=== PATIENT | female | born 1940 | race Caucasian/White ===

== ENCOUNTER 2016-10-25 08:45 | Inpatient (IN) | payer MEDICARE, OTHER ==
[2016-10-17 11:46] LABS: BASOPHILS 0.5 %; BASOPHILS ABSOLUTE 0.04 10/3/uL (0.0-0.16); EOSINOPHILS 1.4 %; EOSINOPHILS ABSOLUTE 0.12 10/3/uL (0.0-0.53); HEMOGLOBIN 11.9 g/dL (12.0-16.0); IMMATURE GRANULOCYTES 0.2 %; IMMATURE GRANULOCYTES ABSOLUTE 0.02 10/3/uL (0.0-0.11); LYMPHOCYTES 24.7 %; LYMPHOCYTES ABSOLUTE 2.09 10/3/uL (0.67-4.30); MEAN CORPUS HGB CONC 31.7 g/dL (32.0-36.0); MEAN CORPUSCULAR HEMOGLOB 28.4 pg (26.0-34.0); MEAN CORPUSCULAR VOLUME 89.5 fL (80-100); MEAN PLATELET VOLUME 9.1 fL (9.2-13.0); MONOCYTES 9.1 %; MONOCYTES ABSOLUTE 0.77 10/3/uL (0.21-1.20); NEUTROPHILS 64.1 %; NEUTROPHILS ABSOLUTE 5.42 10/3/uL (2.02-8.40); RED CELL COUNT 4.19 10/6/uL (4.0-5.6); WHITE BLOOD CELLS 8.5 10/3/uL (4.5-10.5)
[2016-10-17 11:47] LABS: HEMATOCRIT 37.5 % (36.0-48.0); MANUAL DIFF NO %; PLATELET COUNT 487 10/3/uL (150-400)
[2016-10-17 11:55] LABS: INTERNATIONAL NORMAL RATI 1.4 UNITS (-); PROTIME (NOT ORD) 17.1 SEC (12.0-14.5)
[2016-10-17 12:04] LABS: % IRON SAT 16 % (20-50); A/G RATIO 0.9 (0.7-1.9); ALBUMIN 3.5 G/DL (3.5-5.0); ALKALINE PHOSPHATASE 116 U/L (45-117); BUN (BLOOD UREA NITROGEN) 11 MG/DL (6-23); CALCIUM, SERUM 9.5 MG/DL (8.5-10.4); CHLORIDE, SERUM 95 MMOL/L (96-112); CO2 (CARBON DIOXIDE) 33 MMOL/L (24-34); CREATININE 0.61 MG/DL (0.55-1.02); GFR AFRICAN AMERICAN 104 ML/MIN (>=60); GFR NON AFRICAN AMERICAN 89 ML/MIN (>=60); GLOBULIN 4.1 G/DL (2.5-4.1); GLUCOSE, SERUM 92 MG/DL (60-99); IRON BINDING CAPACITY 384 MCG/DL (225-410); IRON, SERUM 60 MCG/DL (35-150); POTASSIUM, SERUM 3.7 MMOL/L (3.5-5.3); SGOT(AST) 31 U/L (5-40); SGPT(ALT) 28 U/L (5-65); SODIUM, SERUM 137 MMOL/L (135-148); TOTAL BILIRUBIN 0.8 MG/DL (0-1.2); TOTAL PROTEIN 7.6 G/DL (6.0-8.5)
[2016-10-17 12:45] LABS: ASCORBIC ACID (UR NOT ORDER) NEG (NEG); BILIRUBIN, URINE NEGATIVE (NEG); KETONE, URINE NEGATIVE (NEG); LEUKOCYTE ESTERASE(NOT OR TRACE (NEG); WBC (NOT ORDERED) (RFLEX) < 1 (0-5)
--- NOTE | ~2016-10-25 | CN ---
Consultation Report [facility] [address] [facility] [place]. [address] NAME: YESY TORRES : 44 STATUS : ADM IN [facility]#: [id number] AGE: 76 ADM/REG DATE : 10/25/16 MR#: [id number] REPORT SERV DATE: 10/28/16 DICTATED BY: EDMUND CERVANTES DATE: 10/28/16 REPORT STATUS : Draft TRANSCRIBED BY: MODL DATE: 10/28/16 ELECTROPHYSIOLOGY CONSULTATION DATE OF CONSULTATION: INDICATION: Third-degree AV block. HISTORY OF PRESENT ILLNESS: Ms. Yesy Torres is a 76-year-old female who was admitted on 10/25/2016 with mitral valve stenosis as well as mitral insufficiency, cardiomyopathy, question ischemic versus valvular, cardiomyopathy and CAD. She underwent surgery on 10/25/2016, at which time, she had mitral valve replacement with a pericardial prosthesis and bypass grafting with a single-vessel bypass graft to the saphenous vein graft to diagonal. She had an ejection fraction of 40% under preprocedure coronary arteriogram. She remained in third-degree AV block since that time. Cardiac Electrophysiology is consulted for consideration of pacemaker. The patient is currently eating pasta with vegetables. The patient's underlying rhythm is third-degree AV block with a ventricular escape in the range of 25 to 30 beats per minute. She does have symptoms of dizziness with this. Her ventricular capture threshold on her epicardial lead is approximately 4.5-5 milliamps. Otherwise, the patient is without complaints of chest pain or shortness of breath at present time. PAST MEDICAL HISTORY: Coronary artery disease, mitral valve disease with mixed MR and MS, CAD, obesity. FAMILY HISTORY: Notable for coronary artery disease in older relatives, lung cancer, aortic enlargement. SOCIAL HISTORY: Quit smoking twenty years ago. Former financial coach. No alcohol. REVIEW OF SYSTEMS: As per the HPI. Otherwise, all review of systems negative. Other past medical history are hypertension, hypercholesteremia, osteoarthritis, previous history of GI bleeding, previous history of smoking. PHYSICAL EXAMINATION: VITAL SIGNS: Blood pressure of 116/57, pulse is 60, respiratory rate is 18, temperature 99.8, T-max 100.5. GENERAL: Appears stated age, no distress. EYES: Sclerae anicteric, no arcus senilis. MOUTH: Oral mucosa moist, lips acyanotic. NECK: Jugular venous pressure normal, no carotid bruits. Consultation Report [facility] [address] [place]. [address] NAME: YESY TORRES : 44 STATUS : ADM IN [facility]#: [id number] AGE: 76 ADM/REG DATE : 10/25/16 MR#: [id number] REPORT SERV DATE: 10/28/16 DICTATED BY: EDMUND CERVANTES DATE: 10/28/16 REPORT STATUS : Draft TRANSCRIBED BY: MODL DATE: 10/28/16 LUNGS: Coarse breath sounds bilaterally. CARDIAC: Regular rate and rhythm, no murmurs, gallops or rubs. ABDOMEN: Obese, soft, nontender. EXTREMITIES: Mild edema. SKIN: Warm and dry. NEURO/PSYCH: Alert and oriented, nonfocal, mood appropriate. DATA: Sodium 139, potassium 4.3, creatinine 0.51, magnesium 2.1. Hemoglobin 9, white count 11.6, platelets 146. Telemetry demonstrates third-degree AV block. PRESENT MEDICATIONS: Vitamin C, aspirin, Lipitor, coenzyme Q10, Colace, Pepcid, Lasix, Synthroid, topical nitroglycerin, Protonix, potassium, Senokot, and zinc sulfate. ALLERGIES: NONE KNOWN. IMPRESSION: 1. Third-degree AV block. 2. Cardiomyopathy, question ischemic versus valvular. 3. Status post CABG and maze. 4. Obesity. 5. History of hypertension. 6. Hyperlipidemia. RECOMMENDATIONS: Discussed situation with the patient. We will plan for a cardiac resynchronization. Pacemaker to be implanted tomorrow. I have addressed with her the rationale, logistics, and risks. Risks include, but not limited to bleeding, infection, vascular complications, myocardial infarction, stroke, failure to place lead, lead dislodgement, pneumothorax. All questions were answered and the patient wished to proceed. GKB/SAVANNAH Edmund Cervantes M.D. / [id number] CC: Tony Isbell
--- NOTE | ~2016-10-25 | DS ---
Discharge Summary [facility] [address] [place]. [address] NAME: DIMITRIOS JUSTIN : 44 STATUS : DIS IN PAT#: [id number] AGE: 76 ADM/REG DATE : 10/25/16 MR#: [id number] REPORT SERV DATE: 11/13/16 DICTATED BY: REMEDIOS CORTES DATE: 11/12/16 REPORT STATUS : Draft TRANSCRIBED BY: SAVANNAH DATE: 11/12/16 Data Collection from hospitalization DISCHARGE DIAGNOSES: 1. Mitral valve stenosis with insufficiency (rheumatic) disease, status post mitral valve replacement. 2. Coronary artery disease with angina, status post coronary artery bypass grafting x1. 3. Paroxysmal atrial fibrillation, status post extensive left atrial Maze. 4. Chronic diastolic heart failure. 5. Hypertension. 6. Gastroesophageal reflux disease. 7. Morbid obesity - body mass index greater than 40. 8. Hypercholesterolemia. 9. Osteoarthritis. 10.Psoriatic arthritis. 11.History of parathyroid disorder. 12.Anxiety. 13.Former smoker. CONSULTATIONS: Edmund Cervantes M.D. PROCEDURES PERFORMED: Mitral valve replacement with 29 mm pericardial valve (Magna Ease) using chordal sparing technique (posterior leaflet), coronary artery bypass grafting x1 with reverse saphenous vein graft placed to the second diagonal, extensive left atrial Maze procedure on cardiopulmonary bypass using radiofrequency ablation and cryoablation, endoscopic vein harvest of the saphenous vein from the right thigh, transesophageal echocardiography on 10/25/2016. PATHOLOGY: Left atrial appendage - noninflamed cardiac muscle. Mitral valve anterior leaflet replacement - myxoid degeneration. MEDICATIONS: Vitamin C 1000 mg twice a day, aspirin 81 mg daily, Lipitor 40 mg at bedtime, brimonidine one drop in both eyes twice a day, CoQ10 200 mg daily, Colace 200 mg twice a day, Lasix 40 mg daily, Levaquin 750 mg as instructed, Synthroid 88 mcg before breakfast, Theragran tablets one tablet daily, Lopressor 25 mg twice a day as instructed, Protonix 40 mg before breakfast, potassium chloride SR 40 mEq daily, Senokot two tablets twice a day, Coumadin as instructed, Tylenol 650 mg every four hours as needed, Mylanta 30 mL as needed, Dulcolax 10 mg per rectum as needed, [place] 5/325 one tablet every four hours as needed, and milk of magnesia 30 mL at bedtime as needed. CONDITION AT DISCHARGE: Stable. DISPOSITION: The patient was discharged to [facility] with diet and activities as instructed. She would follow up with Missael Farias on 11/28/2016 and would follow up with Dr. Perkins on 11/07/2016. HOSPITAL COURSE: This is a 76-year-old female who describes having a "minor heart attack" in 1994. At that time, she had been seen by Dr. Oscar Caban and told that she had a Discharge Summary [address] [address] NAME: DIMITRIOS JUSTIN : 44 STATUS : DIS IN PAT#: [id number] AGE: 76 ADM/REG DATE : 10/25/16 MR#: [id number] REPORT SERV DATE: 11/13/16 DICTATED BY: REMEDIOS CORTES DATE: 11/12/16 REPORT STATUS : Draft TRANSCRIBED BY: MODYesica DATE: 11/12/16 problem with her mitral bowel. Apparently, she was followed over a period of years by Dr. Caban, which had included several coronary arteriograms and at least one nuclear medicine study. She had been discharged from his practice when her symptoms were stable. She reports that over the past several years she has had a progressive decline in her exercise tolerance. 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 She said that over the past three months prior to this admission her shortness of breath had progressed to the point where she gets quite short of breath just getting up from her chair and walking to the bathroom. She does live alone and said that she has been sleeping in a recliner. She has also had some left-sided chest discomfort. She has not had any diaphoresis, nausea, vomiting, syncope, or near syncope. She did remember having possibly an abnormal heart rate. She also complained that she has had several months of progressive swelling over the lower extremities, and over the years, has had an intermittent cough that was dry and usually nonproductive, this was attributed apparently to bronchitis. She had seen her primary care physician and had an echocardiogram, which was abnormal. Transesophageal echocardiogram here demonstrated severe mitral regurgitation, mild mitral stenosis with diminished left ventricular ejection fraction and mitral valve area of 2.2 cm2 with mean gradient of 5 mmHg. Her coronary arteriogram had shown significant flow-limiting disease in the diagonal branch. She had [id number] disease in the other coronary arteries. Treatment options were discussed and it was elected to proceed with surgical intervention. She was admitted to the hospital at this time for further evaluation and treatment. Upon admission, she was taken to the operating room where she underwent the above-mentioned procedure. She tolerated this well, and there were no complications. On postop day #1, she was seen by Dr. Edmund Cervantes regarding third-degree AV block. The patient had an ejection fraction of 40% under preprocedure coronary arteriogram. She had remained in third degree AV block since that time. Cardiac electrophysiology had been consulted for consideration of a pacemaker. The patient's underlying rhythm with third-degree AV block with ventricular escape in the range of 25 to 30 beats per minute. She did have some symptoms of dizziness with this. Ventricular capture threshold on the epicardial lead was approximately 4.5-5 milliamps. Otherwise, she had no complaints of chest pain or shortness of breath at the present time. Situation was discussed with the patient. We would plan for cardiac resynchronization to be performed and pacemaker implantation. The patient agreed to proceed. On 10/27/2016, she was up sitting in a chair. She complained that her shoulders were sore and she had some shortness of breath. White count was 13.2. Metoprolol and amiodarone were held. The next day, she was up sitting in a chair. She had a few crackles in the lung bases. Her incisions looked okay. She had no edema. She was in an AV junctional rhythm and was requiring pacing for rate. Nitroglycerin was stopped. She was still in the ICU. She had no atrial fibrillation at this time. I preferred that we continue temporary pacing and gave her about one week for rhythm recovery. On 10/29/2016, she had mildly decreased breath sounds, left greater than right. She had a few crackles. She had trace lower extremity edema. We were going to try her off the pacer. The following day, Coumadin was going to begin that evening. She had no chest pain or shortness of breath. She remained off beta-evette and amiodarone. She was transferred to the floor. On 10/31/2016, pacing wires were removed. Her abdomen was soft and nontender. She had 2+ lower extremity edema. Her incisions looked okay. Zaroxolyn was added to her Discharge Summary [address] [place]. [address] NAME: DIMITRIOS JUSTIN : 44 STATUS : DIS IN PAT#: [id number] AGE: 76 ADM/REG DATE : 10/25/16 MR#: [id number] REPORT SERV DATE: 11/13/16 DICTATED BY: REMEDIOS CORTES DATE: 11/12/16 REPORT STATUS : Draft TRANSCRIBED BY: SAVANNAH DATE: 11/12/16 regimen. Potassium supplementation was given. Over the next couple of days, she felt less short of breath. She had more energy. Discharge planning was performed. She did have some burning discomfort with urination. Urinalysis was performed. White count was 10.2. Levaquin was started. Low-dose Lopressor was continued for tachycardia. She was evaluated by Physical Therapy. Her INR level was 2.1. On 11/02/2016, she continued to progress. She had no new complaints. Discharge instructions were given. Due to her improved and stable condition, she was discharged to [facility] with the above-stated instructions. Information collected by: Brianne Whelan I submit the above information as my discharge summary. DENIA/SAVANNAH Remedios Cortes M.D. / [id number] CC: Tony Isbell LAURIE Gregory Keith Bruce, M.D. [facility]
--- NOTE | ~2016-10-25 | OP ---
Record Of Operation [facility] [address] [place]. [address] NAME: DIMITRIOS JUSTIN : 42 STATUS : ADM IN PAT#: [id number] AGE: 76 ADM/REG DATE : 10/25/16 MR#: [id number] REPORT SERV DATE: 10/25/16 DICTATED BY: REMEDIOS CORTES DATE: 10/25/16 REPORT STATUS : Draft TRANSCRIBED BY: MODL DATE: 10/25/16 DATE OF PROCEDURE: 10/25/2016 PREOPERATIVE DIAGNOSES: 1. Mitral valve stenosis with insufficiency (rheumatic). 2. Coronary artery disease with angina. 3. Paroxysmal atrial fibrillation. 4. Chronic diastolic heart failure. 5. Hypertension. 6. Gastroesophageal reflux disease. 7. Morbid obesity (body mass index greater than 40). POSTOPERATIVE DIAGNOSES: 1. Mitral valve stenosis with insufficiency (rheumatic). 2. Coronary artery disease with angina. 3. Paroxysmal atrial fibrillation. 4. Chronic diastolic heart failure. 5. Hypertension. 6. Gastroesophageal reflux disease. 7. Morbid obesity (body mass index greater than 40). PROCEDURE PERFORMED: 1. Mitral valve replacement with a 29 mm pericardial valve (Magna Ease) using chordal sparing technique (posterior leaflet). 2. Coronary artery bypass grafting x1, reverse saphenous vein graft placed to the second diagonal. 3. Extensive left atrial Maze procedure on cardiopulmonary bypass using radiofrequency ablation and cryoablation. 4. Endoscopic vein harvest of the saphenous vein from right the thigh. 5. Transesophageal echocardiography. SURGEON: Remedios Cortes M.D. ASSISTANTS: Page Quinones and Zach Sy. ANESTHESIA: General with Dr. Nicole. WOOD MACHINIST APPRENTICE: Tiera Pepper M.D. INDICATIONS: This is a 76-year-old morbidly obese female who presented to [facility] with diastolic congestive heart failure. She was also seen to be in atrial fibrillation at that time and was medically convert. She was transferred to [facility] from [facility] and underwent echocardiogram that demonstrated significant mitral valve insufficiency with a partially calcified mitral annulus and mitral valve stenosis, it is felt to be at least moderate. She underwent a cardiac catheterization that demonstrated significant disease in the branch of the first diagonal vessel. We were asked to see the patient for Record Of Operation [facility] [address] [place]. [address] NAME: DIMITRIOS JUSTIN : 42 STATUS : ADM IN PAT#: [id number] AGE: 76 ADM/REG DATE : 10/25/16 MR#: [id number] REPORT SERV DATE: 10/25/16 DICTATED BY: REMEDIOS CORTES DATE: 10/25/16 REPORT STATUS : Draft TRANSCRIBED BY: MODYesica DATE: 10/25/16 possible coronary artery bypass grafting and mitral valve replacement. We saw the patient in the hospital and was felt to be at elevated risk because of her comorbidities, and she was admitted for possible transvenous mitral valve replacement; however, she did not have enough annular calcification to be able to see the transcatheter mitral valve, it was believed. Therefore, we were asked to re-engage and consider mitral valve replacement and bypass surgery in this nice lady along with possible Maze procedure. We discussed this operation with the patient, and after discussion of the operations, its indication and risks, they wished to proceed. The patient's preoperative risk of mortality of greater than 5% and morbidity mortality of 26% was shared with the family. FINDINGS AT OPERATION: 1. Cross-clamp time of 85 minutes and total pump time of 118 minutes. 2. The diagonal vessel was a branch of the first diagonal, I called this vessel D2. It was 1.5 mm moderately diseased. A 3-4 mm RSVG was anastomosed to it with fair runoff. This was a small target. 3. The vein quality was okay and the grafts did have good Doppler signal at the end of the case. 4. Mitral valve was thickened with fusion of the anterolateral and posteromedial commissures consistent with history of rheumatic disease. The chords coming to the anterior leaflet and posterior leaflet were foreshortened and very thickened. I felt this was a type III Radha defect. 5. We replaced the mitral valve using a 29 mm Magna Ease pericardial valve. We used a 14 cor knots to secure the valve into place. The posterior leaflet and its chordal attachments were preserved. 6. We did ligate and amputate the left atrial appendage using a 60 mm purple staple load. 7. Left atrial Maze procedure on bypass was performed. We utilized the AtriCure radiofrequency ablation and cryoablation systems. Full left atrial Maze procedure along with a coronary sinus lesion was performed. We also performed entry and exit block testing. 8. MILLY at the end of the operation demonstrated good ventricular function and mitral valve prosthesis was well seated without perivalvular leak. There was no significant tricuspid valve insufficiency and no significant aortic insufficiency. At the beginning of the operation, MILLY demonstrated no left atrial clot. PATHOLOGIC SPECIMENS: Include left atrial appendage. Also portions of the anterior leaflet of the mitral valve. DESCRIPTION OF PROCEDURE: The patient was brought to the operating suite where general anesthesia was induced and airway secured with an endotracheal tube. Lines secured by Anesthesia. White catheter was placed. The patient's chest, abdomen, groin, and legs were prepped with Hibiclens and ChloraPrep and draped with Ioban sterile sheets. MILLY probe was placed by Dr. Nicole and examination carried out in my attendance as discussed above. The saphenous vein was harvested from the right thigh using endoscopic technique. Briefly, the vein was cut directly down upon through a 2 cm incision placed at the medial aspect of the right knee. Then, using VasoView trocars, the vessel was dissected from the surrounding subcutaneous tissue and fat. The side branches were identified, ligated, and divided with Record Of Operation [facility] [address] [facility] [place]. [address] NAME: DIMITRIOS JUSTIN : 42 STATUS : ADM IN PAT#: [id number] AGE: 76 ADM/REG DATE : 10/25/16 MR#: [id number] REPORT SERV DATE: 10/25/16 DICTATED BY: REMEDIOS CORTES DATE: 10/25/16 REPORT STATUS : Draft TRANSCRIBED BY: MODYesica DATE: 10/25/16 cautery. Once adequate length of vein had been dissected, a counter incision was made up in the groin and the vein was ligated, divided, and brought through the knee incision. The vein quality was good. The leg was made hemostatic and closed in layers with absorbable suture and skin closed in subcuticular fashion. Then, a midline sternal incision was made with the sternal saw. The Vinh retractor was placed and heparin administered by Anesthesia. Lines passed from the field for cardiopulmonary bypass and cleared of air. The pericardium was opened from the innominate vein, the diaphragm was T'd and tacked to side of the chest wall. Cannulation pursestring sutures were placed and cannulation was carried out in a routine manner. No retrograde cardioplegia cannula was placed. When all was in readiness, the patient was placed on cardiopulmonary bypass. We marked out the single distal targets as described in the findings. Next, we turned our attention towards the Maze procedure. Circumferential dissection around the confluence of the pulmonary veins was carried out. Then, we divided the ligament of Cory using cautery. Signals in the pulmonary veins were confirmed along with pacing. Next, pulmonary vein isolation performed using the AtriCure bipolar clamp. The lesion at the base of the left atrial was performed and a connecting lesion between the left PVI and base left atrial appendage was performed with the AtriCure pen. Then, a coronary sinus lesion using the cryoprobe was performed in the usual manner. The aorta was then cross clamped and the initial and only dose of crystalloid solution was given in an antegrade fashion. Then, interatrial groove of [place] was dissected and left atriotomy made. We continued with the Maze procedure performing again at the superior and inferior dome lesions and mitral valve lesion using the RFA clamp and cryoprobe. It should be noted that entry block confirmation was performed prior to cardioplegia administration. With the Maze procedure completed, a heart support was placed. We then turned our attention towards the bypass graft. Arteriotomy was made in the diagonal vessel. The vein graft was trimmed and anastomosed to it with 7-0 Prolene. This vein graft was measured to the left side of the ascending aorta where it was divided and anastomosed to 4.5 mm punch aortotomy with 6-0 Prolene. Following the bypass, the heart support was removed. We then turned our attention towards the mitral valve. The Vinh retractor apparatus was assembled and positioned allowing good visualization of the mitral valve. The mitral valve was examined and as stated above, the mitral valve appeared to be rheumatic with thickened leaflets and short and thickened chordae. There was also fusion of the anterior and posterior commissures. The anterior leaflet was excised along with the chordal attachments. The most of the posterior leaflet and its chordal attachments were preserved. We then irrigated the left ventricle and left atrium copiously with iced saline to remove any particulate matter. The valve was sized and a 29 mm pericardial valve was selected. Interrupted pledgeted sutures of 2-0 Tycron placed circumferentially about the mitral valve annulus with the pledgets on the ventricular side. The sutures were then passed through the sewing cuff of the prosthetic valve. This lowered into position and each sutures Record Of Operation [facility] [address] [place]. [address] NAME: DIMITRIOS JUSTIN : 42 STATUS : ADM IN PAT#: [id number] AGE: 76 ADM/REG DATE : 10/25/16 MR#: [id number] REPORT SERV DATE: 10/25/16 DICTATED BY: REMEDIOS CORTES DATE: 10/25/16 REPORT STATUS : Draft TRANSCRIBED BY: SAVANNAH DATE: 10/25/16 individually secured and divided using a Cor-Knot device. A total of 14 cor knots were utilized. Iced saline injection through the orifice of the mitral valve after implantation demonstrated a well-functioning valve without significant leak. Warming was begun. An LV vent was then placed through right superior pulmonary vein and directed across the mitral valve into the left ventricle. The left atriotomy was then closed in a two-layer fashion with running pledgeted suture of 4-0 Prolene. The patient placed in Trendelenburg and the ascending aorta and left ventricle were de- aired. The aortic cross-clamp was then removed. The distal and proximal anastomoses and suture lines were all inspected and made hemostatic. Doppler demonstrated good flow through the grafts. The heart was allowed to rest on cardiopulmonary bypass for several minutes. Then, ventilations were begun. The heart was also paced in an AV sequential fashion. When the heart demonstrated good contractility, it was allowed to fill and eject. De-airing was monitored with MILLY. When deairing was completed, the LV vent was removed and these pursestring sutures tied. The ascending aortic vent was likewise removed and these pursestring sutures tied and reinforced. The patient was then weaned from cardiopulmonary bypass with minimal inotropic support. The venous cannulas were removed and these pursestring sutures were tied. MILLY examination demonstrated good function in the left ventricle and right ventricle. The mitral valve prosthesis was well seated without perivalvular leak. Protamine was administered by Anesthesia, and following a period of hemodynamic stability, aortic cannula was removed and these pursestring sutures tied and reinforced. The patient continued do well and chest irrigated copiously with saline. Meticulous hemostasis was obtained. Hemasorb was placed along the cut edge of the sternum. Once hemostasis was assured, the pericardium was draped over the anterior surface of the heart and tacked into position. Doppler demonstrated good flow through the grafts following protamine administration. Then, chest tubes were placed and sternum reapproximated with eight sternal wires. The clavipectoral fascia and linea alba were closed with #1 Stratafix as was subcutaneous tissue. The skin was closed in subcuticular fashion. The patient tolerated the procedure well. There were no complications. Sponge and needle counts were correct. DISPOSITION: The patient left intubated, sedated, and transported to the intensive care unit in stable condition. NUBIA/SAVANNAH Remedios Cortes M.D. Record Of [address] [address] NAME: DIMITRIOS JUSTIN : 42 STATUS : ADM IN [facility]#: [id number] AGE: 76 ADM/REG DATE : 10/25/16 MR#: [id number] REPORT SERV DATE: 10/25/16 DICTATED BY: REMEDIOS CORTES DATE: 10/25/16 REPORT STATUS : Draft TRANSCRIBED BY: SAVANNAH DATE: 10/25/16 / [id number] CC: Tony Isbell M.D. Ondrej J Lisy, M.D.
[~2016-10-25 08:45] MED LIST: ADVIL PO; ALBUTEROL SULFATE INH; ALPHAGAN P 0.1% OPH; ALPHAGAN P0.1 % OPH; ASAB PO; BENGAY TOP; CENTRUM PO; COQ-10200 MG PO; COQ-1075 MG PO; COREG3 PO; CRANBERRY PO; DULCOLAX STOOL100 MG PO; ELIQUIS 5 MG TAB5 MG PO; ISORDIL10 PO; KLOR-CON M2020 MEQ PO; L40 PO; LEVOTHYROXIN88 MCG PO; LIPITOR40 PO; NEXIUM20 M1 PO; NORCO1 TA1 PO; PRESERVISION A1 EAC1 PO; PRESERVISION A1 EACH PO; TRICOR48 PO; VITE PO; XARELTO20 MG PO
[2016-10-25 19:50] LABS: BE (BASE EXCESS) -3.3 MEQ/L (0 +/- 2.5); CARBOXYHEMOGLOBIN 0.3 % (0-3); HEMOBLOGIN CONTENT 11.2 G/DL (12-16); INSTRUMENT SERIAL # 11843; METHEMOGLOBIN 0.5 % (0-3); MODE SIMV; O2 CONTENT 16.1 VOL% (18-24); OPERATOR ID 32193; PCO2 (CO2 TENSION) 40 MMHG (35-45); PO2 (O2 TENSION) 275 MMHG (79-93); SAMPLE Arterial; TIDAL VOLUME 500 ML; pH 7.36 (7.37-7.43)
[2016-10-25 20:04] LABS: HEMOGLOBIN 10.5 g/dL (12.0-16.0)
[2016-10-25 20:08] LABS: HEMATOCRIT 32.7 % (36.0-48.0); PLATELET COUNT 120 10/3/uL (150-400)
[2016-10-25 20:09] LABS: INTERNATIONAL NORMAL RATI 1.9 UNITS (-)
[2016-10-25 20:16] LABS: BUN (BLOOD UREA NITROGEN) 10 MG/DL (6-23); CALCIUM, SERUM 8.3 MG/DL (8.5-10.4); CHLORIDE, SERUM 108 MMOL/L (96-112); CO2 (CARBON DIOXIDE) 23 MMOL/L (24-34); CREATININE 0.59 MG/DL (0.55-1.02); GFR AFRICAN AMERICAN 105 ML/MIN (>=60); GFR NON AFRICAN AMERICAN 90 ML/MIN (>=60); GLUCOSE, SERUM 104 MG/DL (60-99); POTASSIUM, SERUM 3.6 MMOL/L (3.5-5.3); SODIUM, SERUM 141 MMOL/L (135-148)
[2016-10-25 20:26] LABS: PROTIME (NOT ORD) 21.3 SEC (12.0-14.5)
[2016-10-26 00:34] LABS: BE (BASE EXCESS) -2.1 MEQ/L (0 +/- 2.5); CARBOXYHEMOGLOBIN 0.2 % (0-3); DEVICE VM; HCO3 (ACTUAL BICARBONATE) 24.3 MEQ/L (23-27); HEMOBLOGIN CONTENT 11.3 G/DL (12-16); INSTRUMENT SERIAL # 11843; METHEMOGLOBIN 0.5 % (0-3); O2 CONTENT 15.4 VOL% (18-24); OPERATOR ID 32193; PCO2 (CO2 TENSION) 49 MMHG (35-45); PO2 (O2 TENSION) 102 MMHG (79-93); SAMPLE Arterial; pH 7.32 (7.37-7.43)
[2016-10-26 02:32] LABS: CHLORIDE, SERUM 113 MMOL/L (96-112); CO2 (CARBON DIOXIDE) 26 MMOL/L (24-34); CREATININE 0.44 MG/DL (0.55-1.02); GFR AFRICAN AMERICAN 115 ML/MIN (>=60); GFR NON AFRICAN AMERICAN 99 ML/MIN (>=60); GLUCOSE, SERUM 99 MG/DL (60-99); POTASSIUM, SERUM 4.1 MMOL/L (3.5-5.3); SODIUM, SERUM 147 MMOL/L (135-148)
[2016-10-26 02:36] LABS: BUN (BLOOD UREA NITROGEN) 15 MG/DL (6-23)
[2016-10-26 02:42] LABS: INTERNATIONAL NORMAL RATI 1.5 UNITS (-)
[2016-10-26 02:43] LABS: BASOPHILS 0 %; EOSINOPHILS 0 %; HEMOGLOBIN 9.9 g/dL (12.0-16.0); IMMATURE GRANULOCYTES 0.2 %; IMMATURE GRANULOCYTES ABSOLUTE 0.02 10/3/uL (0.0-0.11); LYMPHOCYTES 7.2 %; LYMPHOCYTES ABSOLUTE 0.66 10/3/uL (0.67-4.30); MEAN CORPUS HGB CONC 31.9 g/dL (32.0-36.0); MEAN CORPUSCULAR HEMOGLOB 28.9 pg (26.0-34.0); MEAN CORPUSCULAR VOLUME 90.4 fL (80-100); MEAN PLATELET VOLUME 9.9 fL (9.2-13.0); MONOCYTES 6.6 %; MONOCYTES ABSOLUTE 0.61 10/3/uL (0.21-1.20); NEUTROPHILS ABSOLUTE 7.93 10/3/uL (2.02-8.40); PLATELET COUNT 120 10/3/uL (150-400); RBC DISTRIBUTION WIDTH 15.6 % (12.0-16.0); RED CELL COUNT 3.43 10/6/uL (4.0-5.6); WHITE BLOOD CELLS 9.2 10/3/uL (4.5-10.5)
[2016-10-26 02:44] LABS: MANUAL DIFF NO %
[2016-10-26 02:46] LABS: PROTIME (NOT ORD) 17.5 SEC (12.0-14.5)
[2016-10-26 18:55] LABS: HEMATOCRIT 29.5 % (36.0-48.0); HEMOGLOBIN 9.5 g/dL (12.0-16.0)
[2016-10-26 19:03] LABS: POTASSIUM, SERUM 4.1 MMOL/L (3.5-5.3)
[2016-10-27 04:22] LABS: HEMATOCRIT 30.2 % (36.0-48.0); HEMOGLOBIN 9.4 g/dL (12.0-16.0); MEAN CORPUS HGB CONC 31.1 g/dL (32.0-36.0); MEAN CORPUSCULAR HEMOGLOB 28.9 pg (26.0-34.0); MEAN CORPUSCULAR VOLUME 92.9 fL (80-100); MEAN PLATELET VOLUME 10.5 fL (9.2-13.0); PLATELET COUNT 120 10/3/uL (150-400); RBC DISTRIBUTION WIDTH 16.1 % (12.0-16.0); RED CELL COUNT 3.25 10/6/uL (4.0-5.6)
[2016-10-27 04:35] LABS: MANUAL DIFF YES %; WHITE BLOOD CELLS 13.2 10/3/uL (4.5-10.5)
[2016-10-27 04:38] LABS: CHLORIDE, SERUM 109 MMOL/L (96-112); CO2 (CARBON DIOXIDE) 25 MMOL/L (24-34); CREATININE 0.43 MG/DL (0.55-1.02); GFR AFRICAN AMERICAN 116 ML/MIN (>=60); GFR NON AFRICAN AMERICAN 100 ML/MIN (>=60); POTASSIUM, SERUM 4.5 MMOL/L (3.5-5.3); SODIUM, SERUM 143 MMOL/L (135-148)
[2016-10-27 04:39] LABS: BUN (BLOOD UREA NITROGEN) 25 MG/DL (6-23); CALCIUM, SERUM 9.4 MG/DL (8.5-10.4); GLUCOSE, SERUM 125 MG/DL (60-99)
[2016-10-27 05:28] LABS: ACANTHOCYTES OCC (0-2/OIF); BAND NEUTROPHILS 9 %; EOSINOPHILS 1 %; EOSINOPHILS ABSOLUTE (CALC) 0.13 10/3/uL (0.0-0.53); HELMET CELLS OCC (0-2/OIF); LYMPHOCYTES 15 %; LYMPHOCYTES ABSOLUTE (CALC) 1.98 10/3/uL (0.67-4.30); MONOCYTES 13 %; MONOCYTES ABSOLUTE (CALC) 1.72 10/3/uL (0.21-1.20); NEUTROPHILS ABSOLUTE (CALC) 9.37 10/3/uL (2.02-8.40); PLATELET ESTIMATE SLT DEC (ADEQUATE); SEGMENTED NEUTROPHIL (0) 62 %; TOTAL NUCLEATED CELLS 100
[2016-10-28 04:08] LABS: BASOPHILS 0.2 %; BASOPHILS ABSOLUTE 0.02 10/3/uL (0.0-0.16); EOSINOPHILS 0.3 %; EOSINOPHILS ABSOLUTE 0.03 10/3/uL (0.0-0.53); HEMATOCRIT 28.2 % (36.0-48.0); IMMATURE GRANULOCYTES 0.4 %; IMMATURE GRANULOCYTES ABSOLUTE 0.05 10/3/uL (0.0-0.11); LYMPHOCYTES 18.3 %; LYMPHOCYTES ABSOLUTE 2.12 10/3/uL (0.67-4.30); MEAN CORPUS HGB CONC 31.9 g/dL (32.0-36.0); MEAN CORPUSCULAR HEMOGLOB 29.3 pg (26.0-34.0); MEAN CORPUSCULAR VOLUME 91.9 fL (80-100); MEAN PLATELET VOLUME 10.6 fL (9.2-13.0); MONOCYTES ABSOLUTE 1.86 10/3/uL (0.21-1.20); NEUTROPHILS 64.8 %; NEUTROPHILS ABSOLUTE 7.52 10/3/uL (2.02-8.40); PLATELET COUNT 146 10/3/uL (150-400); RED CELL COUNT 3.07 10/6/uL (4.0-5.6); WHITE BLOOD CELLS 11.6 10/3/uL (4.5-10.5)
[2016-10-28 04:15] LABS: MANUAL DIFF NO %
[2016-10-28 04:18] LABS: BUN (BLOOD UREA NITROGEN) 22 MG/DL (6-23); CALCIUM, SERUM 9.7 MG/DL (8.5-10.4); CHLORIDE, SERUM 102 MMOL/L (96-112); CREATININE 0.51 MG/DL (0.55-1.02); GFR AFRICAN AMERICAN 110 ML/MIN (>=60); GFR NON AFRICAN AMERICAN 95 ML/MIN (>=60); GLUCOSE, SERUM 134 MG/DL (60-99); POTASSIUM, SERUM 4.3 MMOL/L (3.5-5.3); SODIUM, SERUM 139 MMOL/L (135-148)
[2016-10-28 04:20] LABS: CO2 (CARBON DIOXIDE) 31 MMOL/L (24-34)
[2016-10-29 04:12] LABS: CALCIUM, SERUM 9.2 MG/DL (8.5-10.4); CHLORIDE, SERUM 95 MMOL/L (96-112); CO2 (CARBON DIOXIDE) 35 MMOL/L (24-34); CREATININE 0.37 MG/DL (0.55-1.02); GFR AFRICAN AMERICAN 122 ML/MIN (>=60); GFR NON AFRICAN AMERICAN 105 ML/MIN (>=60); GLUCOSE, SERUM 127 MG/DL (60-99); HEMATOCRIT 26.1 % (36.0-48.0); HEMOGLOBIN 8.1 g/dL (12.0-16.0); MEAN CORPUSCULAR HEMOGLOB 28.1 pg (26.0-34.0); MEAN CORPUSCULAR VOLUME 90.6 fL (80-100); MEAN PLATELET VOLUME 10.3 fL (9.2-13.0); PLATELET COUNT 180 10/3/uL (150-400); POTASSIUM, SERUM 3.6 MMOL/L (3.5-5.3); RBC DISTRIBUTION WIDTH 15.6 % (12.0-16.0); RED CELL COUNT 2.88 10/6/uL (4.0-5.6); SODIUM, SERUM 139 MMOL/L (135-148); WHITE BLOOD CELLS 10.3 10/3/uL (4.5-10.5)
[2016-10-29 04:14] LABS: MANUAL DIFF YES %
[2016-10-29 04:18] LABS: BUN (BLOOD UREA NITROGEN) 13 MG/DL (6-23)
[2016-10-29 04:33] LABS: BAND NEUTROPHILS 6 %; HYPOCHROMIA 1+ (3-10/OIF) (0-2/OIF); LYMPHOCYTES 15 %; LYMPHOCYTES ABSOLUTE (CALC) 1.55 10/3/uL (0.67-4.30); MONOCYTES 12 %; MONOCYTES ABSOLUTE (CALC) 1.24 10/3/uL (0.21-1.20); NEUTROPHILS ABSOLUTE (CALC) 7.52 10/3/uL (2.02-8.40); PLATELET ESTIMATE ADQ (ADEQUATE); SEGMENTED NEUTROPHIL (0) 67 %; TOTAL NUCLEATED CELLS 100
[2016-10-29 04:34] LABS: MACROCYTES 1+ (5-10/OIF) (0-5/OIF); POLYCHROMASIA 1+ (2-5/OIF) (0-1/OIF)
[2016-10-29 14:30] LABS: POTASSIUM, SERUM 3.8 MMOL/L (3.5-5.3)
[2016-10-30 06:25] LABS: BASOPHILS 0.1 %; BASOPHILS ABSOLUTE 0.01 10/3/uL (0.0-0.16); EOSINOPHILS 3.5 %; EOSINOPHILS ABSOLUTE 0.32 10/3/uL (0.0-0.53); HEMATOCRIT 28.4 % (36.0-48.0); HEMOGLOBIN 9.1 g/dL (12.0-16.0); IMMATURE GRANULOCYTES 0.3 %; IMMATURE GRANULOCYTES ABSOLUTE 0.03 10/3/uL (0.0-0.11); LYMPHOCYTES 17.4 %; MEAN CORPUSCULAR HEMOGLOB 29.3 pg (26.0-34.0); MEAN CORPUSCULAR VOLUME 91.3 fL (80-100); MEAN PLATELET VOLUME 9.1 fL (9.2-13.0); MONOCYTES 12.6 %; MONOCYTES ABSOLUTE 1.16 10/3/uL (0.21-1.20); NEUTROPHILS 66.1 %; NEUTROPHILS ABSOLUTE 6.09 10/3/uL (2.02-8.40); PLATELET COUNT 220 10/3/uL (150-400); RBC DISTRIBUTION WIDTH 15.5 % (12.0-16.0); RED CELL COUNT 3.11 10/6/uL (4.0-5.6); WHITE BLOOD CELLS 9.2 10/3/uL (4.5-10.5)
[2016-10-30 06:26] LABS: MANUAL DIFF NO %
[2016-10-30 06:39] LABS: BUN (BLOOD UREA NITROGEN) 10 MG/DL (6-23); CALCIUM, SERUM 9.3 MG/DL (8.5-10.4); CHLORIDE, SERUM 95 MMOL/L (96-112); CO2 (CARBON DIOXIDE) 36 MMOL/L (24-34); CREATININE 0.29 MG/DL (0.55-1.02); GFR AFRICAN AMERICAN 132 ML/MIN (>=60); GFR NON AFRICAN AMERICAN 114 ML/MIN (>=60); GLUCOSE, SERUM 109 MG/DL (60-99); POTASSIUM, SERUM 4.3 MMOL/L (3.5-5.3); SODIUM, SERUM 136 MMOL/L (135-148)
[2016-10-30 14:39] LABS: INTERNATIONAL NORMAL RATI 1.1 UNITS (-); PROTIME (NOT ORD) 13.7 SEC (12.0-14.5)
[2016-10-31 05:55] LABS: BASOPHILS 0.4 %; BASOPHILS ABSOLUTE 0.04 10/3/uL (0.0-0.16); EOSINOPHILS 3.1 %; EOSINOPHILS ABSOLUTE 0.28 10/3/uL (0.0-0.53); HEMATOCRIT 27.6 % (36.0-48.0); HEMOGLOBIN 8.5 g/dL (12.0-16.0); IMMATURE GRANULOCYTES 0.6 %; IMMATURE GRANULOCYTES ABSOLUTE 0.05 10/3/uL (0.0-0.11); LYMPHOCYTES 14.9 %; LYMPHOCYTES ABSOLUTE 1.33 10/3/uL (0.67-4.30); MEAN CORPUS HGB CONC 30.8 g/dL (32.0-36.0); MEAN CORPUSCULAR HEMOGLOB 28.1 pg (26.0-34.0); MEAN CORPUSCULAR VOLUME 91.4 fL (80-100); MONOCYTES 14.6 %; NEUTROPHILS 66.4 %; NEUTROPHILS ABSOLUTE 5.92 10/3/uL (2.02-8.40); PLATELET COUNT 274 10/3/uL (150-400); RBC DISTRIBUTION WIDTH 15.7 % (12.0-16.0); RED CELL COUNT 3.02 10/6/uL (4.0-5.6); WHITE BLOOD CELLS 8.9 10/3/uL (4.5-10.5)
[2016-10-31 06:00] LABS: INTERNATIONAL NORMAL RATI 1.1 UNITS (-); PROTIME (NOT ORD) 14.3 SEC (12.0-14.5)
[2016-10-31 06:04] LABS: MANUAL DIFF NO %
[2016-10-31 06:06] LABS: BUN (BLOOD UREA NITROGEN) 8 MG/DL (6-23); CALCIUM, SERUM 9.3 MG/DL (8.5-10.4); CHLORIDE, SERUM 92 MMOL/L (96-112); CO2 (CARBON DIOXIDE) 37 MMOL/L (24-34); GFR AFRICAN AMERICAN 131 ML/MIN (>=60); GFR NON AFRICAN AMERICAN 113 ML/MIN (>=60); GLUCOSE, SERUM 124 MG/DL (60-99); POTASSIUM, SERUM 3.5 MMOL/L (3.5-5.3); SODIUM, SERUM 136 MMOL/L (135-148)
[2016-11-01 06:48] LABS: BASOPHILS 0.4 %; BASOPHILS ABSOLUTE 0.04 10/3/uL (0.0-0.16); EOSINOPHILS 3.1 %; EOSINOPHILS ABSOLUTE 0.32 10/3/uL (0.0-0.53); HEMATOCRIT 28.7 % (36.0-48.0); HEMOGLOBIN 9.2 g/dL (12.0-16.0); IMMATURE GRANULOCYTES 0.7 %; IMMATURE GRANULOCYTES ABSOLUTE 0.07 10/3/uL (0.0-0.11); LYMPHOCYTES 15.8 %; LYMPHOCYTES ABSOLUTE 1.61 10/3/uL (0.67-4.30); MEAN CORPUS HGB CONC 32.1 g/dL (32.0-36.0); MEAN CORPUSCULAR HEMOGLOB 29.3 pg (26.0-34.0); MEAN CORPUSCULAR VOLUME 91.4 fL (80-100); MEAN PLATELET VOLUME 8.9 fL (9.2-13.0); MONOCYTES 15.9 %; MONOCYTES ABSOLUTE 1.62 10/3/uL (0.21-1.20); NEUTROPHILS 64.1 %; NEUTROPHILS ABSOLUTE 6.54 10/3/uL (2.02-8.40); RBC DISTRIBUTION WIDTH 15.6 % (12.0-16.0); RED CELL COUNT 3.14 10/6/uL (4.0-5.6); WHITE BLOOD CELLS 10.2 10/3/uL (4.5-10.5)
[2016-11-01 06:49] LABS: MANUAL DIFF NO %; PLATELET COUNT 359 10/3/uL (150-400)
[2016-11-01 06:59] LABS: BUN (BLOOD UREA NITROGEN) 8 MG/DL (6-23); CHLORIDE, SERUM 90 MMOL/L (96-112); CO2 (CARBON DIOXIDE) 37 MMOL/L (24-34); CREATININE 0.39 MG/DL (0.55-1.02); GFR AFRICAN AMERICAN 120 ML/MIN (>=60); GFR NON AFRICAN AMERICAN 103 ML/MIN (>=60); GLUCOSE, SERUM 118 MG/DL (60-99); POTASSIUM, SERUM 3.9 MMOL/L (3.5-5.3); SODIUM, SERUM 136 MMOL/L (135-148)
[2016-11-01 07:07] LABS: INTERNATIONAL NORMAL RATI 2.1 UNITS (-); PROTIME (NOT ORD) 23.2 SEC (12.0-14.5)
[2016-11-01 08:11] LABS: ASCORBIC ACID (UR NOT ORDER) 40 (NEG); BILIRUBIN, URINE NEGATIVE (NEG); KETONE, URINE NEGATIVE (NEG); LEUKOCYTE ESTERASE(NOT OR LARGE (NEG)
[2016-11-01 08:19] LABS: WBC (NOT ORDERED) (RFLEX) > 182 (0-5)
[2016-11-02 06:49] LABS: INTERNATIONAL NORMAL RATI 2.2 UNITS (-); PROTIME (NOT ORD) 24.6 SEC (12.0-14.5)
[2017-03-01] MEDS ORDERED: COUMADIN3 MG PO (10:13)
[2017-03-01] MEDS ORDERED: COREG3 PO (10:13)
[2017-03-01] MEDS ORDERED: COZ25 PO (10:14)
[2017-03-01] MEDS ORDERED: KLOR-CON M2020 MEQ PO (10:16)
[2017-03-01] MEDS ORDERED: C25 PO (10:20)
[2017-03-01] MEDS ORDERED: CO Q-10100 MG PO (10:21)
[2017-03-01] MEDS ORDERED: T PO (10:25)
[2017-03-05] MEDS ORDERED: MAGOX4 PO (11:00)
[2017-03-05] MEDS ORDERED: ULTRAM50 PO (11:02)
[2017-04-01] MEDS ORDERED: LIPITOR40 PO ×2 (19:33→19:35)
[2017-04-01] MEDS ORDERED: KLOR-CON M2020 MEQ PO (19:36)
[2017-04-01] MEDS ORDERED: COZ25 PO (19:36)
[2017-04-01] MEDS ORDERED: PROTONIX PO (19:36)
[2017-04-01] MEDS ORDERED: DUONEB INH (19:37)
[2017-04-01] MEDS ORDERED: SYN.05 PO (19:37)
[2017-04-01] MEDS ORDERED: CO Q-10100 MG PO (19:38)
[2017-04-01] MEDS ORDERED: MULTIPLE VIT PO (19:38)
[2017-04-01] MEDS ORDERED: BRIMONIDINE0.2 % OPH (19:38)
[2017-04-01] MEDS ORDERED: ULTRAM50 PO (19:39)
[2017-04-01] MEDS ORDERED: NORCO1 TA1 PO (19:40)
[2017-04-01] MEDS ORDERED: COREG12 PO (19:42)
[2017-04-01] MEDS ORDERED: DEMA20 PO (19:42)
[2017-04-01] MEDS ORDERED: X25 PO (19:43)
[2017-04-01] MEDS ORDERED: P20 PO (19:44)
[2017-04-01] MEDS ORDERED: LEVAQUIN750 MG PO (19:44)
[2017-04-01] MEDS ORDERED: MAGOX4 PO (19:47)
== END 2016-11-02 15:05 | DRG 220 ==
LOC: SDC/OF 08:45 → CVICU 17:14 → 5NO 10-30 12:53
PROVIDERS: Internal Medicine Cardiovascular Disease; Nurse Practitioner Family; Specialist; Thoracic Surgery (Cardiothoracic Vascular Surgery)
PROC: 06BP3ZZ Excision of Right Saphenous Vein, Percutaneous Approach (ICD-10-PCS; 2016-10-25)
PROC: 5A1221Z Performance of Cardiac Output, Continuous (ICD-10-PCS; 2016-10-25)
PROC: B246ZZ4 Ultrasonography of Right and Left Heart, Transesophageal (ICD-10-PCS; 2016-10-25)
PROC: 02RG08Z Replacement of Mitral Valve with Zooplastic Tissue, Open Approach (ICD-10-PCS; principal; 2016-10-25 12:30)
PROC: 021 Heart and Great Vessels, Bypass (ICD-10-PCS; 2016-10-25 12:30)
PROC: 02580ZZ Destruction of Conduction Mechanism, Open Approach (ICD-10-PCS; 2016-10-25 12:30)
DX: I25.110 Atherosclerotic heart disease of native coronary artery with unstable angina pectoris (principal); I50.32 Chronic diastolic (congestive) heart failure; I44.2 Atrioventricular block, complete; Z68.41 Body mass index [BMI] 40.0-44.9, adult; N39.0 Urinary tract infection, site not specified; I48.0 Paroxysmal atrial fibrillation; I34.0 Nonrheumatic mitral (valve) insufficiency; I10 Essential (primary) hypertension; K21.9 Gastro-esophageal reflux disease without esophagitis; E66.01 Morbid (severe) obesity due to excess calories; Z87.891 Personal history of nicotine dependence
CPT/HCPCS: 36415; 71010; 71020; 80048; 80053; 81001; 82330; 82803; 82805; 82947; 82962; 83036; 83540; 83550; 83735; 84132; 84295; 85014; 85018; 85025; 85049; 85347; 85610; 85730; 86850; 86900; 86901; 86920; 87077; 87086; 87186; 87641; 88304; 88305; 93005; 93312; 93320; 93325; 94002; 94640; 94660; 94770; 97161-GP; A9270-GY; C1769; C1894; C2618; G8978-CK-GP; G8979-CI-GP; J0690; J1644; J2150; J2250; J2370; J2405; J2440; J2720; J2765; J2795; J2930; J3010; J3475; P9045

== ENCOUNTER 2016-11-14 21:50 | Inpatient (IN) | payer MEDICARE, OTHER ==
--- NOTE | ~2016-11-14 | PRECARD ---
H&P [facility] [address] [facility] [place]. [address] NAME: DIMITRIOS TORRES : 44 STATUS : ADM [facility]#: [id number] AGE: 76 ADM/REG DATE : 11/15/16 MR#: [id number] REPORT SERV DATE: 11/15/16 DICTATED BY: CHICHI TORRES DATE: 11/15/16 REPORT STATUS : Draft TRANSCRIBED BY: SAVANNAH DATE: 11/15/16 DATE OF ADMISSION: 11/15/2016 REFERRING PHYSICIAN: Emergency Room. PRIMARY SPORTS PHYSIOLOGIST: Tim Perkins M.D. CHIEF COMPLAINT: Shortness of breath and swelling. REASON FOR ADMISSION: Congestive heart failure. SOURCE: The patient and her chart. HISTORY OF PRESENT ILLNESS: Ms. Torres is a very pleasant 76-year-old white woman, who had mitral valve replacement, coronary artery bypass grafting, and maze procedure on 10/25/2016. She was discharged to [facility] on 11/02/2016. She was doing well until yesterday when she developed edema and shortness of breath and noticed her heart rate going up to 114. She could not get around the gym as she could days earlier. She is not having much pain. She came to the [facility] Emergency Room and was admitted for further care. REVIEW OF SYSTEMS: All other systems are negative. ALLERGIES: NO KNOWN DRUG ALLERGIES. MEDICATIONS: As per her home list included vitamin C, aspirin, atorvastatin, Brimonidine, coenzyme Q10, Colace, furosemide, hydrocodone, levothyroxine, metoprolol, multivitamins, pantoprazole, potassium, Senokot, and warfarin. CARDIAC RISK FACTORS: Cholesterol and former tobacco. Denies diabetes, hypertension, or family history. SOCIAL HISTORY: The patient lives in [place]. She is . She has three children, alive and well. She is retired. FAMILY HISTORY: Father of myocardial infarction at age 64. Brother had pulmonary fibrosis and heart disease. Another brother at age 64 of heart disease. PAST MEDICAL HISTORY: Significant for mitral valve replacement, coronary bypass grafting, and maze procedure on 10/25/2016. She had mitral regurgitation, coronary artery disease, paroxysmal atrial fibrillation, gastroesophageal reflux disease, obesity, status post hysterectomy, status post breast implants, and status post cataract surgery. She had a colonoscopy for rectal bleeding, was found to have polyps, diverticulosis, and internal hemorrhoids. PHYSICAL EXAMINATION: [facility]P [place] [id number] [facility] [place]. [address] NAME: DIMITRIOS TORRES : 44 STATUS : ADM [facility]#: [id number] AGE: 76 ADM/REG DATE : 11/15/16 MR#: [id number] REPORT SERV DATE: 11/15/16 DICTATED BY: CHICHI TORRES DATE: 11/15/16 REPORT STATUS : Draft TRANSCRIBED BY: SAVANNAH DATE: 11/15/16 GENERAL: She is an acutely and chronically ill-appearing elderly white woman in no acute distress. VITAL SIGNS: Blood pressure 133/80, pulse 102, and temperature 97.9. Telemetry reveals sinus rhythm. HEENT: Sclerae anicteric. Lips without cyanosis. NECK: Carotids 2+ and symmetrical. No bruits. No JVD. No thyromegaly. LUNGS: Rales, both bases. Shallow inspiratory effort. No use of accessory muscles. HEART: Regular rate and rhythm without murmur, gallop, or rub. CHEST: Healing sternotomy. ABDOMEN: Positive bowel sounds. Soft and nontender. EXTREMITIES: Pulses are 2+ and symmetrical. No cyanosis or clubbing. 1+ edema. BACK: No CVA tenderness. MUSCULOSKELETAL: Good tone. NEUROLOGIC: Alert and oriented x3. IMAGING: EKG reveals sinus tachycardia, PAC, and left bundle-branch block. Chest x-ray, mild vascular congestion, previous CABG and heart valve repair. LABORATORY DATA: The laboratory examination included BNP level of 605. White count 8.6, hemoglobin 10.5, hematocrit 33.4, platelets 464,000, and MCV 88. Sodium 137, potassium 3.2 chloride 97, CO2 of 34, glucose 113, BUN 6, and creatinine 0.47. The INR is 2.1. Troponin of 0.05. IMPRESSION: 1. Congestive heart failure, acute on chronic. 2. Status post mitral valve replacement, coronary artery bypass grafting, and maze procedure, 10/25/2016. Discharged to [facility], 11/02/2016. 3. Paroxysmal atrial fibrillation. 4. Transient heart block postop. Did not require pacer. 5. Anticoagulated with Coumadin. 6. Cholesterol and family history. 7. Obesity. 8. Hypothyroidism, on replacement. 9. Postop anemia. 10.Left bundle-branch block. RECOMMENDATIONS: 1. Diuresis with IV Lasix. 2. Check echocardiogram. 3. Check TSH and free T4. 4. Continue Coumadin. 5. Iron therapy. 6. Courtesy notify Dr. Cortes. 7. See orders. H&P [facility] [address] [place]. [address] NAME: DIMITRIOS TORRES : 44 STATUS : ADM IN PAT#: [id number] AGE: 76 ADM/REG DATE : 11/15/16 MR#: [id number] REPORT SERV DATE: 11/15/16 DICTATED BY: CHICHI TORRES DATE: 11/15/16 REPORT STATUS : Draft TRANSCRIBED BY: SAVANNAH DATE: 11/15/16 DIAN/SAVANNAH Chichi Torres M.D. / [id number] CC: Tony Dunn
[2016-11-14 21:23] LABS: BASOPHILS 0.4 %; BASOPHILS ABSOLUTE 0.03 10/3/uL (0.0-0.16); EOSINOPHILS 1.8 %; EOSINOPHILS ABSOLUTE 0.14 10/3/uL (0.0-0.53); HEMOGLOBIN 10.3 g/dL (12.0-16.0); IMMATURE GRANULOCYTES 0.1 %; IMMATURE GRANULOCYTES ABSOLUTE 0.01 10/3/uL (0.0-0.11); LYMPHOCYTES 18.4 %; LYMPHOCYTES ABSOLUTE 1.46 10/3/uL (0.67-4.30); MEAN CORPUS HGB CONC 31.8 g/dL (32.0-36.0); MEAN CORPUSCULAR HEMOGLOB 28.1 pg (26.0-34.0); MEAN PLATELET VOLUME 8.2 fL (9.2-13.0); MONOCYTES 14.7 %; MONOCYTES ABSOLUTE 1.17 10/3/uL (0.21-1.20); NEUTROPHILS 64.6 %; NEUTROPHILS ABSOLUTE 5.14 10/3/uL (2.02-8.40); PLATELET COUNT 453 10/3/uL (150-400); RBC DISTRIBUTION WIDTH 15.7 % (12.0-16.0); RED CELL COUNT 3.67 10/6/uL (4.0-5.6)
[2016-11-14 21:24] LABS: HEMATOCRIT 32.4 % (36.0-48.0); MANUAL DIFF NO %; MEAN CORPUSCULAR VOLUME 88.3 fL (80-100)
[2016-11-14 21:31] LABS: INTERNATIONAL NORMAL RATI 2.1 UNITS (-); PARTIAL THROMBO TIME 50.1 SEC (22.5-37.2); PROTIME (NOT ORD) 23.5 SEC (12.0-14.5)
[2016-11-14 21:39] LABS: BUN (BLOOD UREA NITROGEN) 6 MG/DL (6-23); CALCIUM, SERUM 9.1 MG/DL (8.5-10.4); CHLORIDE, SERUM 98 MMOL/L (96-112); CO2 (CARBON DIOXIDE) 34 MMOL/L (24-34); CREATININE 0.48 MG/DL (0.55-1.02); GFR AFRICAN AMERICAN 112 ML/MIN (>=60); GFR NON AFRICAN AMERICAN 97 ML/MIN (>=60); GLUCOSE, SERUM 132 MG/DL (60-99); POTASSIUM, SERUM 3.2 MMOL/L (3.5-5.3); SODIUM, SERUM 141 MMOL/L (135-148)
[2016-11-14 21:40] LABS: CHEST PAIN PROFILE TAT 0 Hrs 23 Mins; TROPONIN I 0.05 NG/ML (<0.05)
[2016-11-15] MEDS ORDERED: COUMADIN4 MG PO (00:02)
[2016-11-15] MEDS ORDERED: SYN88 PO (00:05)
[2016-11-15] MEDS ORDERED: PROTONIX PO (00:05)
[2016-11-15] MEDS ORDERED: MULTIVIT/MIN PO (00:06)
[2016-11-15] MEDS ORDERED: LOP25 PO (00:06)
[2016-11-15] MEDS ORDERED: DSS PO (00:06)
[2016-11-15] MEDS ORDERED: L40 PO (00:06)
[2016-11-15] MEDS ORDERED: KDUR20 PO (00:07)
[2016-11-15] MEDS ORDERED: SENTAB PO (00:07)
[2016-11-15] MEDS ORDERED: VITC500 PO (00:07)
[2016-11-15] MEDS ORDERED: CO Q-10200 MG PO (00:08)
[2016-11-15] MEDS ORDERED: ASAB PO (00:08)
[2016-11-15] MEDS ORDERED: BRIMONIDINE0.2 % OPH (00:08)
[2016-11-15] MEDS ORDERED: LIPITOR40 PO (00:08)
[2016-11-15] MEDS ORDERED: NORCO1 TA1 PO (00:09)
[2016-11-15 05:27] LABS: BASOPHILS 0.6 %; BASOPHILS ABSOLUTE 0.05 10/3/uL (0.0-0.16); EOSINOPHILS 2.2 %; EOSINOPHILS ABSOLUTE 0.19 10/3/uL (0.0-0.53); HEMATOCRIT 33.4 % (36.0-48.0); HEMOGLOBIN 10.5 g/dL (12.0-16.0); IMMATURE GRANULOCYTES 0.1 %; IMMATURE GRANULOCYTES ABSOLUTE 0.01 10/3/uL (0.0-0.11); LYMPHOCYTES 17.1 %; LYMPHOCYTES ABSOLUTE 1.48 10/3/uL (0.67-4.30); MANUAL DIFF NO %; MEAN CORPUS HGB CONC 31.4 g/dL (32.0-36.0); MEAN CORPUSCULAR HEMOGLOB 27.8 pg (26.0-34.0); MEAN CORPUSCULAR VOLUME 88.4 fL (80-100); MEAN PLATELET VOLUME 8.3 fL (9.2-13.0); MONOCYTES 16.2 %; NEUTROPHILS 63.8 %; NEUTROPHILS ABSOLUTE 5.51 10/3/uL (2.02-8.40); PLATELET COUNT 464 10/3/uL (150-400); RBC DISTRIBUTION WIDTH 15.9 % (12.0-16.0); RED CELL COUNT 3.78 10/6/uL (4.0-5.6); WHITE BLOOD CELLS 8.6 10/3/uL (4.5-10.5)
[2016-11-15 05:45] LABS: BUN (BLOOD UREA NITROGEN) 6 MG/DL (6-23); CALCIUM, SERUM 9.8 MG/DL (8.5-10.4); CHLORIDE, SERUM 97 MMOL/L (96-112); CO2 (CARBON DIOXIDE) 34 MMOL/L (24-34); CREATININE 0.47 MG/DL (0.55-1.02); GFR AFRICAN AMERICAN 113 ML/MIN (>=60); GFR NON AFRICAN AMERICAN 97 ML/MIN (>=60); GLUCOSE, SERUM 113 MG/DL (60-99); POTASSIUM, SERUM 3.2 MMOL/L (3.5-5.3); SODIUM, SERUM 137 MMOL/L (135-148)
[2016-11-15 10:45] LABS: FREE T4 1.36 NG/DL (0.76-1.46)
[2016-11-15 23:58] LABS: CPK 19 U/L (0-200); TROPONIN I 0.04 NG/ML (<0.05)
[2016-11-15 23:59] LABS: CK-MB 1.2 NG/ML
[2016-11-16 06:26] LABS: INTERNATIONAL NORMAL RATI 2.5 UNITS (-)
[2016-11-16 06:27] LABS: BASOPHILS 0.8 %; BASOPHILS ABSOLUTE 0.05 10/3/uL (0.0-0.16); EOSINOPHILS 3.8 %; EOSINOPHILS ABSOLUTE 0.24 10/3/uL (0.0-0.53); HEMATOCRIT 34.5 % (36.0-48.0); HEMOGLOBIN 10.8 g/dL (12.0-16.0); IMMATURE GRANULOCYTES 0.2 %; IMMATURE GRANULOCYTES ABSOLUTE 0.01 10/3/uL (0.0-0.11); LYMPHOCYTES 25.7 %; LYMPHOCYTES ABSOLUTE 1.63 10/3/uL (0.67-4.30); MEAN CORPUS HGB CONC 31.3 g/dL (32.0-36.0); MEAN CORPUSCULAR VOLUME 89.4 fL (80-100); MEAN PLATELET VOLUME 8.5 fL (9.2-13.0); MONOCYTES 14.5 %; MONOCYTES ABSOLUTE 0.92 10/3/uL (0.21-1.20); PLATELET COUNT 468 10/3/uL (150-400); PROTIME (NOT ORD) 27.1 SEC (12.0-14.5); RBC DISTRIBUTION WIDTH 15.7 % (12.0-16.0); RED CELL COUNT 3.86 10/6/uL (4.0-5.6); WHITE BLOOD CELLS 6.4 10/3/uL (4.5-10.5)
[2016-11-16 06:29] LABS: MANUAL DIFF NO %
[2016-11-16 06:35] LABS: CALCIUM, SERUM 10.3 MG/DL (8.5-10.4); CHLORIDE, SERUM 98 MMOL/L (96-112); CO2 (CARBON DIOXIDE) 33 MMOL/L (24-34); CREATININE 0.58 MG/DL (0.55-1.02); GFR AFRICAN AMERICAN 105 ML/MIN (>=60); GFR NON AFRICAN AMERICAN 91 ML/MIN (>=60); GLUCOSE, SERUM 113 MG/DL (60-99); POTASSIUM, SERUM 3.8 MMOL/L (3.5-5.3); SODIUM, SERUM 138 MMOL/L (135-148)
[2016-11-16 06:37] LABS: BUN (BLOOD UREA NITROGEN) 18 MG/DL (6-23)
[2016-11-17 10:03] LABS: ASCORBIC ACID (UR NOT ORDER) 40 (NEG); BILIRUBIN, URINE NEGATIVE (NEG); KETONE, URINE TRACE MG/DL (NEG); LEUKOCYTE ESTERASE(NOT OR LARGE (NEG)
[2016-11-17 10:07] LABS: WBC (NOT ORDERED) (RFLEX) > 182 (0-5)
[2016-11-18 07:40] LABS: BASOPHILS 0.4 %; BASOPHILS ABSOLUTE 0.03 10/3/uL (0.0-0.16); EOSINOPHILS 3.3 %; EOSINOPHILS ABSOLUTE 0.24 10/3/uL (0.0-0.53); HEMATOCRIT 33.8 % (36.0-48.0); HEMOGLOBIN 10.6 g/dL (12.0-16.0); IMMATURE GRANULOCYTES 0.1 %; IMMATURE GRANULOCYTES ABSOLUTE 0.01 10/3/uL (0.0-0.11); LYMPHOCYTES 18.2 %; LYMPHOCYTES ABSOLUTE 1.33 10/3/uL (0.67-4.30); MEAN CORPUS HGB CONC 31.4 g/dL (32.0-36.0); MEAN CORPUSCULAR HEMOGLOB 27.5 pg (26.0-34.0); MEAN CORPUSCULAR VOLUME 87.8 fL (80-100); MEAN PLATELET VOLUME 8.6 fL (9.2-13.0); MONOCYTES 11.8 %; MONOCYTES ABSOLUTE 0.86 10/3/uL (0.21-1.20); NEUTROPHILS 66.2 %; NEUTROPHILS ABSOLUTE 4.84 10/3/uL (2.02-8.40); PLATELET COUNT 399 10/3/uL (150-400); RBC DISTRIBUTION WIDTH 15.9 % (12.0-16.0); RED CELL COUNT 3.85 10/6/uL (4.0-5.6); WHITE BLOOD CELLS 7.3 10/3/uL (4.5-10.5)
[2016-11-18 07:41] LABS: MANUAL DIFF NO %
[2016-11-18 07:49] LABS: INTERNATIONAL NORMAL RATI 3.1 UNITS (-); PROTIME (NOT ORD) 31.3 SEC (12.0-14.5)
[2016-11-18 07:59] LABS: BUN (BLOOD UREA NITROGEN) 17 MG/DL (6-23); CALCIUM, SERUM 9.8 MG/DL (8.5-10.4); CHLORIDE, SERUM 97 MMOL/L (96-112); CO2 (CARBON DIOXIDE) 34 MMOL/L (24-34); CREATININE 0.37 MG/DL (0.55-1.02); GFR AFRICAN AMERICAN 122 ML/MIN (>=60); GFR NON AFRICAN AMERICAN 105 ML/MIN (>=60); GLUCOSE, SERUM 113 MG/DL (60-99); POTASSIUM, SERUM 3.5 MMOL/L (3.5-5.3); SODIUM, SERUM 138 MMOL/L (135-148)
[2016-11-19 04:42] LABS: BASOPHILS 0.9 %; BASOPHILS ABSOLUTE 0.05 10/3/uL (0.0-0.16); EOSINOPHILS 4.1 %; EOSINOPHILS ABSOLUTE 0.23 10/3/uL (0.0-0.53); HEMOGLOBIN 10.8 g/dL (12.0-16.0); IMMATURE GRANULOCYTES 0.2 %; IMMATURE GRANULOCYTES ABSOLUTE 0.01 10/3/uL (0.0-0.11); LYMPHOCYTES 23.7 %; LYMPHOCYTES ABSOLUTE 1.34 10/3/uL (0.67-4.30); MEAN CORPUS HGB CONC 30.9 g/dL (32.0-36.0); MEAN CORPUSCULAR HEMOGLOB 27.4 pg (26.0-34.0); MEAN CORPUSCULAR VOLUME 88.8 fL (80-100); MEAN PLATELET VOLUME 8.7 fL (9.2-13.0); MONOCYTES 17.5 %; MONOCYTES ABSOLUTE 0.99 10/3/uL (0.21-1.20); NEUTROPHILS 53.6 %; NEUTROPHILS ABSOLUTE 3.03 10/3/uL (2.02-8.40); PLATELET COUNT 392 10/3/uL (150-400); RBC DISTRIBUTION WIDTH 15.5 % (12.0-16.0); RED CELL COUNT 3.94 10/6/uL (4.0-5.6); WHITE BLOOD CELLS 5.7 10/3/uL (4.5-10.5)
[2016-11-19 04:43] LABS: MANUAL DIFF NO %
[2016-11-19 04:46] LABS: INTERNATIONAL NORMAL RATI 2.5 UNITS (-); PROTIME (NOT ORD) 27.1 SEC (12.0-14.5)
[2016-11-19 04:50] LABS: BUN (BLOOD UREA NITROGEN) 17 MG/DL (6-23); CALCIUM, SERUM 9.8 MG/DL (8.5-10.4); CHLORIDE, SERUM 92 MMOL/L (96-112); CO2 (CARBON DIOXIDE) 34 MMOL/L (24-34); CREATININE 0.41 MG/DL (0.55-1.02); GFR AFRICAN AMERICAN 118 ML/MIN (>=60); GFR NON AFRICAN AMERICAN 102 ML/MIN (>=60); GLUCOSE, SERUM 94 MG/DL (60-99); POTASSIUM, SERUM 3.5 MMOL/L (3.5-5.3); SODIUM, SERUM 135 MMOL/L (135-148)
[2016-11-19 15:43] LABS: PROCALCITONIN <0.05 ng/mL (<0.5)
[2016-11-20 05:25] LABS: BASOPHILS ABSOLUTE 0.06 10/3/uL (0.0-0.16); EOSINOPHILS ABSOLUTE 0.18 10/3/uL (0.0-0.53); HEMATOCRIT 36.5 % (36.0-48.0); HEMOGLOBIN 11.4 g/dL (12.0-16.0); IMMATURE GRANULOCYTES 0.2 %; IMMATURE GRANULOCYTES ABSOLUTE 0.01 10/3/uL (0.0-0.11); LYMPHOCYTES ABSOLUTE 1.75 10/3/uL (0.67-4.30); MEAN CORPUS HGB CONC 31.2 g/dL (32.0-36.0); MEAN CORPUSCULAR HEMOGLOB 27.6 pg (26.0-34.0); MEAN CORPUSCULAR VOLUME 88.4 fL (80-100); MEAN PLATELET VOLUME 8.8 fL (9.2-13.0); MONOCYTES 17.1 %; MONOCYTES ABSOLUTE 1.03 10/3/uL (0.21-1.20); NEUTROPHILS 49.7 %; NEUTROPHILS ABSOLUTE 3.01 10/3/uL (2.02-8.40); PLATELET COUNT 347 10/3/uL (150-400); RBC DISTRIBUTION WIDTH 15.7 % (12.0-16.0); RED CELL COUNT 4.13 10/6/uL (4.0-5.6)
[2016-11-20 05:26] LABS: MANUAL DIFF NO %
[2016-11-20 05:35] LABS: INTERNATIONAL NORMAL RATI 2.5 UNITS (-); PROTIME (NOT ORD) 26.8 SEC (12.0-14.5)
[2016-11-20 05:43] LABS: BUN (BLOOD UREA NITROGEN) 17 MG/DL (6-23); CALCIUM, SERUM 10.1 MG/DL (8.5-10.4); CHLORIDE, SERUM 94 MMOL/L (96-112); CO2 (CARBON DIOXIDE) 32 MMOL/L (24-34); CREATININE 0.39 MG/DL (0.55-1.02); GFR AFRICAN AMERICAN 120 ML/MIN (>=60); GFR NON AFRICAN AMERICAN 103 ML/MIN (>=60); GLUCOSE, SERUM 107 MG/DL (60-99); POTASSIUM, SERUM 3.8 MMOL/L (3.5-5.3); SODIUM, SERUM 137 MMOL/L (135-148)
[2016-11-21 04:51] LABS: BASOPHILS 0.7 %; BASOPHILS ABSOLUTE 0.04 10/3/uL (0.0-0.16); EOSINOPHILS 3.6 %; EOSINOPHILS ABSOLUTE 0.22 10/3/uL (0.0-0.53); HEMATOCRIT 36.3 % (36.0-48.0); HEMOGLOBIN 11.4 g/dL (12.0-16.0); IMMATURE GRANULOCYTES 0.2 %; IMMATURE GRANULOCYTES ABSOLUTE 0.01 10/3/uL (0.0-0.11); LYMPHOCYTES 25.5 %; LYMPHOCYTES ABSOLUTE 1.54 10/3/uL (0.67-4.30); MANUAL DIFF NO %; MEAN CORPUS HGB CONC 31.4 g/dL (32.0-36.0); MEAN CORPUSCULAR HEMOGLOB 27.9 pg (26.0-34.0); MEAN CORPUSCULAR VOLUME 88.8 fL (80-100); MEAN PLATELET VOLUME 9.1 fL (9.2-13.0); MONOCYTES 15.9 %; MONOCYTES ABSOLUTE 0.96 10/3/uL (0.21-1.20); NEUTROPHILS 54.1 %; NEUTROPHILS ABSOLUTE 3.26 10/3/uL (2.02-8.40); PLATELET COUNT 360 10/3/uL (150-400); RBC DISTRIBUTION WIDTH 15.9 % (12.0-16.0); RED CELL COUNT 4.09 10/6/uL (4.0-5.6)
[2016-11-21 04:54] LABS: BUN (BLOOD UREA NITROGEN) 15 MG/DL (6-23); CALCIUM, SERUM 10.1 MG/DL (8.5-10.4); CHLORIDE, SERUM 97 MMOL/L (96-112); CO2 (CARBON DIOXIDE) 31 MMOL/L (24-34); CREATININE 0.47 MG/DL (0.55-1.02); GFR AFRICAN AMERICAN 113 ML/MIN (>=60); GFR NON AFRICAN AMERICAN 97 ML/MIN (>=60); GLUCOSE, SERUM 115 MG/DL (60-99); POTASSIUM, SERUM 3.6 MMOL/L (3.5-5.3); SODIUM, SERUM 137 MMOL/L (135-148)
[2016-11-21 05:00] LABS: INTERNATIONAL NORMAL RATI 2.7 UNITS (-); PROTIME (NOT ORD) 28.7 SEC (12.0-14.5)
[2016-11-22 07:14] LABS: BASOPHILS 0.7 %; BASOPHILS ABSOLUTE 0.05 10/3/uL (0.0-0.16); EOSINOPHILS 4.1 %; HEMATOCRIT 36.5 % (36.0-48.0); HEMOGLOBIN 11.4 g/dL (12.0-16.0); IMMATURE GRANULOCYTES 0.3 %; IMMATURE GRANULOCYTES ABSOLUTE 0.02 10/3/uL (0.0-0.11); LYMPHOCYTES 15.4 %; LYMPHOCYTES ABSOLUTE 1.12 10/3/uL (0.67-4.30); MEAN CORPUS HGB CONC 31.2 g/dL (32.0-36.0); MEAN CORPUSCULAR HEMOGLOB 27.8 pg (26.0-34.0); MONOCYTES 14.3 %; MONOCYTES ABSOLUTE 1.04 10/3/uL (0.21-1.20); NEUTROPHILS 65.2 %; NEUTROPHILS ABSOLUTE 4.76 10/3/uL (2.02-8.40); PLATELET COUNT 326 10/3/uL (150-400); RBC DISTRIBUTION WIDTH 15.7 % (12.0-16.0); WHITE BLOOD CELLS 7.3 10/3/uL (4.5-10.5)
[2016-11-22 07:16] LABS: MANUAL DIFF NO %
[2016-11-22 07:28] LABS: INTERNATIONAL NORMAL RATI 3.5 UNITS (-)
[2016-11-22 07:29] LABS: PROTIME (NOT ORD) 34.5 SEC (12.0-14.5)
[2016-11-22 07:30] LABS: BUN (BLOOD UREA NITROGEN) 17 MG/DL (6-23); CHLORIDE, SERUM 95 MMOL/L (96-112); CO2 (CARBON DIOXIDE) 31 MMOL/L (24-34); CREATININE 0.49 MG/DL (0.55-1.02); GFR AFRICAN AMERICAN 111 ML/MIN (>=60); GFR NON AFRICAN AMERICAN 96 ML/MIN (>=60); GLUCOSE, SERUM 109 MG/DL (60-99); POTASSIUM, SERUM 3.8 MMOL/L (3.5-5.3); SODIUM, SERUM 136 MMOL/L (135-148)
[2016-11-23 06:43] LABS: BASOPHILS 0.5 %; BASOPHILS ABSOLUTE 0.03 10/3/uL (0.0-0.16); EOSINOPHILS 5.7 %; EOSINOPHILS ABSOLUTE 0.35 10/3/uL (0.0-0.53); HEMATOCRIT 36.6 % (36.0-48.0); HEMOGLOBIN 11.5 g/dL (12.0-16.0); IMMATURE GRANULOCYTES 0.2 %; IMMATURE GRANULOCYTES ABSOLUTE 0.01 10/3/uL (0.0-0.11); INTERNATIONAL NORMAL RATI 3.1 UNITS (-); LYMPHOCYTES 18.3 %; LYMPHOCYTES ABSOLUTE 1.13 10/3/uL (0.67-4.30); MANUAL DIFF NO %; MEAN CORPUS HGB CONC 31.4 g/dL (32.0-36.0); MEAN CORPUSCULAR HEMOGLOB 27.7 pg (26.0-34.0); MEAN CORPUSCULAR VOLUME 88.2 fL (80-100); MEAN PLATELET VOLUME 9.2 fL (9.2-13.0); MONOCYTES 16.2 %; NEUTROPHILS 59.1 %; NEUTROPHILS ABSOLUTE 3.66 10/3/uL (2.02-8.40); PLATELET COUNT 324 10/3/uL (150-400); PROTIME (NOT ORD) 31.6 SEC (12.0-14.5); RBC DISTRIBUTION WIDTH 15.9 % (12.0-16.0); RED CELL COUNT 4.15 10/6/uL (4.0-5.6); WHITE BLOOD CELLS 6.2 10/3/uL (4.5-10.5)
[2016-11-23 06:57] LABS: BUN (BLOOD UREA NITROGEN) 16 MG/DL (6-23); CHLORIDE, SERUM 98 MMOL/L (96-112); CO2 (CARBON DIOXIDE) 28 MMOL/L (24-34); CREATININE 0.36 MG/DL (0.55-1.02); GFR AFRICAN AMERICAN 123 ML/MIN (>=60); GFR NON AFRICAN AMERICAN 106 ML/MIN (>=60); GLUCOSE, SERUM 107 MG/DL (60-99); POTASSIUM, SERUM 3.6 MMOL/L (3.5-5.3); SODIUM, SERUM 137 MMOL/L (135-148)
[2017-03-01] MEDS ORDERED: COUMADIN3 MG PO (10:13)
[2017-03-01] MEDS ORDERED: COREG3 PO (10:13)
[2017-03-01] MEDS ORDERED: COZ25 PO (10:14)
[2017-03-01] MEDS ORDERED: KLOR-CON M2020 MEQ PO (10:16)
[2017-03-01] MEDS ORDERED: C25 PO (10:20)
[2017-03-01] MEDS ORDERED: CO Q-10100 MG PO (10:21)
[2017-03-01] MEDS ORDERED: T PO (10:25)
[2017-03-05] MEDS ORDERED: MAGOX4 PO (11:00)
[2017-03-05] MEDS ORDERED: ULTRAM50 PO (11:02)
[2017-04-01] MEDS ORDERED: LIPITOR40 PO ×2 (19:33→19:35)
[2017-04-01] MEDS ORDERED: KLOR-CON M2020 MEQ PO (19:36)
[2017-04-01] MEDS ORDERED: PROTONIX PO (19:36)
[2017-04-01] MEDS ORDERED: COZ25 PO (19:36)
[2017-04-01] MEDS ORDERED: DUONEB INH (19:37)
[2017-04-01] MEDS ORDERED: SYN.05 PO (19:37)
[2017-04-01] MEDS ORDERED: CO Q-10100 MG PO (19:38)
[2017-04-01] MEDS ORDERED: MULTIPLE VIT PO (19:38)
[2017-04-01] MEDS ORDERED: BRIMONIDINE0.2 % OPH (19:38)
[2017-04-01] MEDS ORDERED: ULTRAM50 PO (19:39)
[2017-04-01] MEDS ORDERED: NORCO1 TA1 PO (19:40)
[2017-04-01] MEDS ORDERED: DEMA20 PO (19:42)
[2017-04-01] MEDS ORDERED: COREG12 PO (19:42)
[2017-04-01] MEDS ORDERED: X25 PO (19:43)
[2017-04-01] MEDS ORDERED: LEVAQUIN750 MG PO (19:44)
[2017-04-01] MEDS ORDERED: P20 PO (19:44)
[2017-04-01] MEDS ORDERED: MAGOX4 PO (19:47)
== END 2016-11-23 13:43 | DRG 292 ==
LOC: ER 21:50 → 6NO 11-15 00:15
PROVIDERS: Emergency Medicine; Internal Medicine Cardiovascular Disease; Internal Medicine Clinical Cardiac Electrophysiology
DX: I11.0 Hypertensive heart disease with heart failure (principal); N39.0 Urinary tract infection, site not specified; I47.2 Ventricular tachycardia; I48.0 Paroxysmal atrial fibrillation; I50.23 Acute on chronic systolic (congestive) heart failure; I25.5 Ischemic cardiomyopathy; I25.10 Atherosclerotic heart disease of native coronary artery without angina pectoris; E66.9 Obesity, unspecified; I44.7 Left bundle-branch block, unspecified; M75.101 Unspecified rotator cuff tear or rupture of right shoulder, not specified as traumatic; D64.9 Anemia, unspecified; E03.9 Hypothyroidism, unspecified; K21.9 Gastro-esophageal reflux disease without esophagitis; Z95.2 Presence of prosthetic heart valve; Z95.1 Presence of aortocoronary bypass graft; Z79.01 Long term (current) use of anticoagulants; Z82.3 Family history of stroke; Z68.32 Body mass index [BMI] 32.0-32.9, adult; Z87.891 Personal history of nicotine dependence; Z90.710 Acquired absence of both cervix and uterus; Z86.010 Personal history of colon polyps
CPT/HCPCS: 71010; 71020; 73030-RT; 73221-RT; 74176; 80048; 81001; 82550; 82553; 83735; 83880; 84145; 84439; 84443; 84484; 85025; 85610; 85730; 87077; 87086; 87186; 93005; 96374; 97116-GP; 97140-GP; 97162-GP; 99285; A9270-GY; C8929; G8978-CK-GP; G8979-CK-GP; Q9957